=== PATIENT | female | born 1980 | race Caucasian/White ===

== ENCOUNTER → 2017-10-15 10:59 | Outpatient (CLI) | payer MEDICAID, SELFPAY ==
[2017-10-15 12:01] LABS: Absolute Neutrophil Count 6.5 X10^3/uL (2.0-7.7); Basophil# 0.05 X10^3/uL; Basophil% 0.6 % (0-1); Eosinophil# 0.31 X10^3/uL; Eosinophils% 3.5 % (0-5); Hematocrit 44.5 % (37-47); Hemoglobin 14.4 g/dl (12.0-15.0); Lymphocyte % 15.8 % (19-41); Mean Corp Hgb Conc 32.4 g/gl (32-36); Mean Corpuscular Hgb 31.1 pg (27.0-32.0); Mean Corpuscular Volume 96.1 fL (81-99); Mean Platelet Vol. 11.4 fl (6.2-12.0); Monocyte# 0.58 X10^3/uL; Monocyte% 6.5 % (0-10); Neutrophil # 6.52 X10^3/uL (2.7-7.7); Neutrophil % 73.4 % (47-70); Platelet Count 212 K/mm3 (150-450); RBC Distribution Width CV 13.9 % (11.6-14.6); RBC Distribution Width SD 47.3 fl (35.1-43.9); Red Blood Count 4.63 M/mm3 (4.2-5.4); White Blood Count 8.9 K/mm3 (4.4-11.0)
[2017-10-15 12:07] LABS: POSITIVE COUNT NO; POSITIVE DIFFERENTIAL NO; POSITIVE MORPHOLOGY NO
[2017-10-15 12:19] LABS: ALB/GLOB Ratio 1.2 RATIO (0.9-2.4); AST(SGOT) 14 U/L (15-37); Alanine Aminotransfer ALT/SGPT 26 U/L (13-56); Albumin, Serum 4.2 g/dL (3.2-5.0); Alkaline Phosphatase 61 U/L (45-117); Anion Gap 9 (5-15); BUN 10 mg/dL (7-18); BUN/Creat Ratio 10.8 RATIO (10-20); Calcium,Total 9.2 mg/dL (8.5-10.1); Chloride 104 mmol/L (98-107); Creatinine, Serum 0.92 mg/dL (0.55-1.02); EST Glomerular Filtration Rate 73 mL/min (>60); Est Glom Filt Rate - Afr Amer 88 mL/min (>60); Globulin 3.4 g/dL (2.2-4.2); Glucose 83 mg/dL (70-110); Potassium 4.2 mmol/L (3.5-5.1); Protein, Total 7.6 g/dL (6.4-8.2); Sodium Level 138 mmol/L (136-145); Vitamin D,25 Hydroxy 21.6 ng/mL (19.95-100.01)
== END ==
PROVIDERS: Visit Provider Family Medicine
DX: Z01.818 Encounter for other preprocedural examination (principal)
CPT/HCPCS: 36415; 80053; 82306; 85025

== ENCOUNTER 2017-10-17 12:43 | Day surgery (SDC) | payer MEDICAID, SELFPAY ==
[2017-10-17] VITALS (9 sets, daily range): BP systolic 109–125; BP diastolic 63–81; PULSE 56–85; RESP 12–16; TEMP 36.3–36.7; O2SAT 100; BMI 28.3
[2017-10-17 13:20] LABS: Internal QC Validated? YES +Cl - CLEAR BKGD; Pregnancy, Urine Negative Negative
--- NOTE | 2017-10-17 14:15 | RAD_ITS ---
STUDY: X-RAY - LEFT FOOT CLINICAL: Female, 37 years old. Documentation of fluoroscopic radiation use after open reduction internal fixation of the metatarsal fracture. TECHNIQUE: Four view(s) of the foot. COMPARISON: Postoperative radiographs of the left foot dated October 17, 2017. FINDINGS: Fluoroscopic radiation time is 98.9 seconds. Dose is 2.07 mGy. Please see operative report for additional details. RAD/Foot min 3 Views IMPRESSION: Documentation of fluoroscopic radiation during open reduction internal fixation of fifth metatarsal fracture. Electronically Signed: Lesley Schultz MD at 17:56 EST , Service support ,
[2017-10-17] MEDS: Cefazolin 2 GM in 0.9% Normal Saline 100 ML IV (14:53)
[2017-10-17] MEDS: Bupivacaine Mpf 0.5% 30 ML VIAL (15:05)
--- NOTE | 2017-10-17 17:12 | DCINST_ITS ---
Discharge Activity: May not drive while taking narcotic pain medications., Use Crutches Return to work on:: 10/27/17 - will reexamine in clinic next week for anticipated work return Ice area for (Minutes): 15 - apply to back of knee Weight Bearing Status: No weight bearing Keep extremity elevated above heart level: Left Leg Call your doctor if your incision/area has: Continuous Slow Oozing, Sudden Increased Bleeding, Increased Pain/ Swelling, Increased Redness, Foul Smelling Discharge, Swelling at the incision site Call your doctor if you observe: Fever of 101 or Higher, Numbness or Tingling, Calf discomfort, Uncontrolled pain Cleanse incision/area with: Keep Dressing Clean & Dry Allergies/Adverse Reactions: Allergies No Known Allergies Allergy (Verified 10/08/17 09:50) Medications to take at Discharge NK [NK] 10/08/17 Primary Care Physician: Care Physician,No Primary [Primary Care Provider] - Please Follow Up With: Eve Thompson DPM When: [facility]. Call if questions/concerns; [phone] Proposed Discharge Date: 10/17/17
--- NOTE | 2017-10-17 17:13 | OP.PN_ITS ---
Problem List (1) Fracture of fifth metatarsal bone of left foot Status: Acute Qualifiers: Encounter type: subsequent encounter Fracture type: closed Fracture alignment: displaced Fracture healing: with routine healing Qualified Code(s ): S92.352D - Displaced fracture of fifth metatarsal bone, left foot, subsequent encounter for fracture with routine healing (2) Left foot pain Status: Acute Immediate Post-Op Note Date of Procedure: 10/17/17 - Surgeon: Eve Thompson DPM. Litigation Coordinator: Bernardo Mcintyre PGY1 Primary Surgeon/Physician: Eve Thompson DPM shingle bolt cutter: none Pre-Operative Diagnosis: Displaced spiral oblique comminuted nonarticular fracture of the fifth metatarsal diaphysis, left foot Post-Operative Diagnosis: Displaced spiral oblique comminuted nonarticular fracture of the fifth metatarsal diaphysis, left foot Surgery/Procedure Performed:: Open reduction internal fixation left fifth metatarsal fracture Description of Surgical Findings:: Hemostasis controlled Fracture reduction and solid fixation Complications: None See detailed operative report for findings The patient tolerated the procedure and anesthesia well. She was transported to the PACU with vital signs stable and vascular status intact to the left lower extremity. All of her postoperative orders were entered electronically. She will be discharged home upon continued stability later today. Estimated Blood Loss: < 50 mL Specimen's removed: None Type of Anesthesia:: Local MAC - Preoperative: 10 cc of 1: 1 mixture of 1% lidocaine plain and 0.5% Marcaine plain administered in typical fifth ray block fashion to the left foot - Admit VTE Documentation VTE Present on Admission: No VTE Mechan Device Prophylaxis: SCD's
--- NOTE | 2017-10-17 17:23 | RAD_ITS ---
STUDY: X-RAY - LEFT FOOT CLINICAL: Female, 37 years old. Status post open reduction internal fixation of a fifth metatarsal fracture. TECHNIQUE: 3 view(s) of the foot. COMPARISON: Prior comparable comparison studies are not available for review at this time. FINDINGS: Normal talus, calcaneus, and tarsal bones. The joint spaces are within normal limits. Plate and screws are visible within the fifth metatarsal probably related to open reduction and internal fixation. Normal metatarsophalangeal joint of the great toe. Normal tibial and fibular sesamoid bones. Normal interphalangeal joint of the great toe. Normal phalanges of the great toe. Normal second through fifth metatarsophalangeal joints. Normal interphalangeal joints and phalanges of the lesser toes. A posterior splint is present. There is soft tissue swelling. RAD/Foot min 3 Views IMPRESSION: Documentation of open reduction internal fixation of the fifth metatarsal fracture. Electronically Signed: Lesley Schultz MD at 19:18 EST , Service support ,
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
== END 2017-10-17 18:15 | disposition home or self-care (01) ==
LOC: SDC 12:45 → ACINP 12:46 → AC 13:39
PROVIDERS: Anesthesiology; Visit Provider Podiatrist
PROC: (CPT 28485; principal; 2017-10-17 14:00)
DX: S92.352D Displaced fracture of fifth metatarsal bone, left foot, subsequent encounter for fracture with routine healing (principal); F17.210 Nicotine dependence, cigarettes, uncomplicated
CPT/HCPCS: 28485; 73630; 76000; 81025; J7120; J2405

== ENCOUNTER 2018-07-28 08:41 | Emergency (ER) | payer OTHER, MEDICAID, SELFPAY ==
[2018-07-28 08:43] VITALS: BP 137/56; PULSE 92; RESP 16; TEMP 36.8; O2SAT 100; BMI 27.8
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
[2018-07-28] MEDS: Diphth,Pertuss(Acell),Tet Vac 0.5 ML Vial IM (09:10)
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
[2018-07-28 11:29] VITALS: BP 114/52; PULSE 88; RESP 16; O2SAT 100
== END 2018-07-28 11:31 | disposition home or self-care (01) ==
PROVIDERS: Emergency Provider Emergency Medicine; Family Provider Family Medicine; PCP Family Medicine
DX: S09.90XA Unspecified injury of head, initial encounter (principal); S20.212A Contusion of left front wall of thorax, initial encounter; S63.501A Unspecified sprain of right wrist, initial encounter; V49.9XXA Car occupant (driver) (passenger) injured in unspecified traffic accident, initial encounter; Y93.9 Activity, unspecified; Y92.89 Other specified places as the place of occurrence of the external cause; Y99.9 Unspecified external cause status; Z72.0 Tobacco use; Z23 Encounter for immunization
CPT/HCPCS: 70450; 71046; 73110; 90471; 90715; 99283

== ENCOUNTER → 2020-07-20 17:07 | Outpatient (CLI) | payer BC, SELFPAY ==
[2020-07-20 17:07] VITALS: BMI 28.3
[2020-07-25 03:07] LABS: Chlamydia By Nucleic Acid AMP Negative (Negative)
[2020-07-25 06:28] LABS: Gonococcus By Nucleic Acid AMP Negative (Negative)
[2020-07-26 15:14] LABS: HPV Reflexed? NOT INDICATED
== END ==
PROVIDERS: PCP Family Medicine; Visit Provider Obstetrics & Gynecology
DX: Z12.4 Encounter for screening for malignant neoplasm of cervix (principal); Z11.3 Encounter for screening for infections with a predominantly sexual mode of transmission
CPT/HCPCS: 87491; 87591; 88175; G0145

== ENCOUNTER → 2023-02-14 | Outpatient (CLI) | payer OTHER, SELFPAY ==
--- NOTE | 2023-02-14 14:31 | US_ITS ---
STUDY: ULTRASOUND BREAST - RIGHT REASON FOR EXAM: Female, 43 years old. Palpable lump in the right breast. TECHNIQUE: Axial and longitudinal images of the RIGHT breast were performed with a high resolution ultrasound transducer. # OF IMAGES: 8 COMPARISON: Comparison is made with prior mammogram done earlier in the day. FINDINGS: RIGHT Breast: The palpable abnormality corresponds to a 2.5 cm x 2.5 cm x 1.2 cm irregular hypoechoic solid nodule at the 12:00 position of the breast at 3 cm from nipple. Increased vascularity. Biopsy recommended. US/Breast Limited Unilateral IMPRESSION: The palpable abnormality corresponds to a 2.5 cm x 2.5 cm x 1.2 cm complex irregular solid mass with increased vascularity. Biopsy recommended. ASSESSMENT CATEGORY: BIRADS Category 5: Highly Suggestive of Malignancy - Appropriate Action Should Be Taken. A letter regarding these results will be sent to the patient by the facility within 30 days. Electronically Signed: Hector Vasquez MD at 8:41 EDT ,
--- NOTE | 2023-02-14 14:31 | BI_ITS ---
MAMMOGRAPHY - BILATERAL SCREENING REASON FOR EXAM: Female, 43 years old. Routine annual screening examination. PERTINENT HISTORY: Two-week history of right breast lump. Bilateral breast implants. TECHNIQUE: Digital bilateral breast davion (3D mammographic acquisition) in the CC and MLO projections. 2-D mediolateral oblique (MLO) and craniocaudad (CC) views of both breasts were obtained. CAD: Full Field Digital Mammography with Computer Added Detection was performed. COMPARISON: None. Baseline examination. FINDINGS: Breast Composition: The breasts are heterogeneously dense, which may obscure small masses. The palpable lump corresponds to a 2.5 cm x 2.4 cm mass mass in the slightly upper central portion of the right breast. Correlation with ultrasound is recommended. No other significant abnormalities are identified. The breast prosthesis are unremarkable. BI/DIAG MAMM W/CAD, BILAT IMPRESSION: The palpable lump corresponds to a 2.5 cm x 2.4 cm mass in the slightly upper central portion of the right breast. Correlation with ultrasound is recommended ASSESSMENT CATEGORY: BIRADS Category 0: Incomplete. Need additional imaging evaluation. A letter regarding these results will be sent to the patient by the facility within 30 days. Approximately 10% of breast cancers are not detected by mammography. A normal mammogram should not delay biopsy of a clinically suspicious abnormality. [id number] Electronically Signed: Hector Vasquez MD at 9:09 EDT ,
== END | disposition home or self-care (01) ==
PROVIDERS: PCP Family Medicine; Referring Provider Obstetrics & Gynecology; Visit Provider Obstetrics & Gynecology
DX: N63.11 Unspecified lump in the right breast, upper outer quadrant (principal)
CPT/HCPCS: 76642; 77062; 77066; G0279

== ENCOUNTER 2023-04-24 10:56 | Day surgery (SDC) | payer OTHER, SELFPAY ==
[2023-04-24] VITALS (7 sets, daily range): BP systolic 107–115; BP diastolic 63–74; PULSE 60–74; RESP 16–18; TEMP 36.3–36.9; O2SAT 98–100; BMI 27.6
[2023-04-24] MEDS: Lactated Ringers 1,000 ML 15 ML IV (11:18)
[2023-04-24 11:19] LABS: Internal QC Validated? YES +Cl - CLEAR BKGD; Pregnancy, Urine Negative Negative
--- NOTE | 2023-04-24 11:35 | RAD_ITS ---
INDICATION: ORIF FX EXAMINATION/TECHNIQUE: X-RAY - RIGHT XR Ankle Min 3 Views 5 VIEWS COMPARISON: None. FINDINGS: 5 intraoperative fluoroscopic spot films obtained during ORIF right ankle fractures. Plate and screw fixator over the distal fibula with compression screws in the medial malleolus. RAD/Ankle min 3 Views IMPRESSION: Status post ORIF right ankle fractures. Electronically Signed: Saurav Martinez MD at 0:40 EDT ,
[2023-04-24] MEDS: Cefazolin 1 GM/50 ML BAG IV (11:44)
[2023-04-24] MEDS: Bupivacaine 0.25% 30 ML Vial (12:58)
--- NOTE | 2023-04-24 13:23 | DCINST_ITS ---
Discharge Instructions Follow Up Care Test Results: Test results from this visit will be discussed in further detail at your follow- up appointment, if applicable. Discharge Plan Admission Primary Reason for Your Visit: R ankle ORIF Attending Provider: Mc Cartagena Primary Care Provider: Sandy Peralta Instructions Additional Instructions / Restrictions: Follow preprinted instructions from your surgeons office Discharge Orders/Prescriptions Prescriptions: No Action oxycodone-acetaminophen 5-325 mg tablet 1 tab PO Q6H PRN (Reason: pain) Patient Comments: TAKE 1 TABLET BY MOUTH EVERY 6 HOURS NEEDED FOR PAIN for up to 3 (THREE) days. albuterol 90 mcg/actuation aerosol 90 mcg inhalation PRN Referrals / Follow Up: Sandy Peralta MD [Primary Care Provider] - Mc Cartagena DO [Med Staff - Active Staff] - Disposition Disposition (needs filled in before D/C Order can be placed): Home, Self Care
--- NOTE | 2023-04-24 13:24 | PCM.OPRPT ---
Report of Operation Date of Procedure: 04/24/23 Description of Surgical Findings:: Preoperative diagnosis: Right ankle bimalleolar ankle fracture Postoperative diagnosis: Right ankle bimalleolar ankle fracture Procedure: 1. Open reduction internal fixation right ankle bimalleolar fracture 2. Stress examination under anesthesia right ankle Surgeon: Mc Cartagena DO Fleet Assistant: Hanna Velez PA-C Anesthesia: General endotracheal Anesthesiologist: Dr. Love Complications: None apparent Drains: None Estimated blood loss: 30 cc Urinary output: None recorded IV fluids: 1800 cc crystalloid Specimens: None Surgical implants: Arthrex 4.0 partially-threaded cannulated screws x 2, 7 hole third tubular plate and screws Surgical indications: This is a 43-year-old female who sustained a fall down while she was [place] for [employer] [place]. She was seen at an outside emergency department and splinted. She followed up in our office. Injury happened on 04/18/2023. X-rays revealed a bimalleolar ankle fracture. Skin wrinkling was present and surgery was scheduled due to the unstable nature of the ankle. I recommend surgical invention in the form of right ankle bimalleolar ankle fracture open reduction internal fixation with possible syndesmotic fixation. I reviewed the risks, benefits, terms the procedure with the patient. The risks include but are not limited to bleeding, infection, loss of life or limb, risk of anesthesia, risk of nerve block, persistent pain, nonunion, malunion, posttraumatic arthritis, instability, need for additional surgery, failure of orthopedic hardware, persistent limp or need for assistive device. Patient expressed understanding of these risks and wished to proceed. Description of procedure: Patient was seen in preoperative holding area. They were identified by name, medical record number, date of . The operative extremity was marked with a surgical marker. We confirmed informed consent with the patient and all questions were answered to her satisfaction. At time of the procedure, patient was brought to the operative suite and positioned supine on a standard operating table. All bony prominences were well-padded. General anesthesia was administered. After adequate anesthesia, a well-padded pneumatic tourniquet was applied to the right upper thigh. A large bump was placed in the patient's right hip. The right lower extremity was elevated on bath blankets for fluoroscopic imaging and access to the limb during surgery. We secured this with tape as well as the nonoperative extremity. We then performed a timeout with all parties in attendance and agree with the side, site, operation to be performed. No concerns were voiced and elected to proceed. 1 g Ancef was administered prior to incision by the anesthesia staff. We then prepped and draped the operative extremity using a ChloraPrep. While stabilizing the ankle, the operative extremity was exsanguinated with an Esmarch bandage. Tourniquet was inflated to 280 mmHg which remained up for approximately 40 minutes. I first turned my attention to the medial malleolus. A longitudinal incision was made sharply centered over the medial malleolus fracture which was easily palpable through the skin. I bluntly dissected the subcutaneous field. Crossing veins were cauterized. Fracture was encountered. Periosteum was interposed in the fracture site and debrided sharply. The talus was examined and its articular surface was pristine. Posterior tibialis tendon was examined and pristine. I then placed a pointed reduction clamp around the tip of the medial malleolus achieving anatomic reduction. 2 parallel K wires were placed through the medial malleoli or tip perpendicular to the fracture site. These were drilled unicortically after position was confirmed on orthogonal fluoroscopy. Partially-threaded cancellous screws were placed with excellent purchase. Wires and reduction clamp were removed with excellent compression across fracture site. Orthogonal Fluoroscopy confirmed appropriate placement of hardware and anatomic reduction of the medial malleolus. I then turned my attention to the lateral malleolus. Incision was planned over the lateral malleolus and distal fibular shaft centered over the level of the fracture. Skin was sharply incised with a 15 blade scalpel. Superficial bleeders were cauterized with Bovie cautery. We then bluntly dissected to the level of the fascia. Fascia was opened with Bovie cautery. We examined closely for the superficial peroneal nerve which was not encountered throughout surgery. We bluntly dissected down to the level of the periosteum. Hohmann retractors were placed after fracture was encountered as well as the fibula. Periosteum was elevated at the level of the fracture approximately 2 to 3 mm. There were 2 separate fracture lines including an avulsion of the AITFL anteriorly. A [id number] reduction tenaculum was used to reapproximate the fracture site with excellent anatomic reduction. We then prepared for a lag screw for fixation. We first planned our lag screw perpendicular to the fracture site posterior inferior to anterior superior. We overdrilled the near cortex with a 3.0 mm drill bit. We then withdrew the drill bit and drilled the far cortex with a 2.0 mm drill bit. We then measured and placed an appropriately sized lag by technique 3.0 mm cortical screw with excellent compression across the fracture site. Reduction tenaculum was removed with excellent security at the fracture site. An additional lag screw was placed in similar fashion distal to the first lag screw. We then selected our plate on the back table. A 7 hole third tubular plate was selected and applied to the lateral cortex of the distal fibula. This was held in place provisionally with a BB tack. I compressed the plate to bone with a cortical screw proximal and cancellous screw distally. BB tack was removed. Appropriate placement of the plate was confirmed on fluoroscopy. 2 additional bicortical cortex screws were placed in the proximal portion of the plate. An additional cancellous screw was placed distally. Fracture was stable at this point. C arm was brought in in a external rotation stress test as well as a cotton test were performed and demonstrated syndesmotic stability. Final fluoroscopic images were obtained and saved. Wounds were copiously irrigated with normal saline solution. Tourniquet deflated and hemostasis was excellent. We reapproximated the dermis in interrupted buried fashion with 2-0 Vicryl suture. Skin was finally reapproximated with interrupted simple 3-0 nylon suture. A sterile compression dressing was then applied. A well-padded 3 sided AO type fiberglass short leg splint was applied in maximal dorsiflexion. Patient tolerated procedure well without apparent complication. She was safely awoken the operative suite, extubated and transferred to her gurney and subsequently to PACU in stable condition. Need for skilled assistant men's lacrosse coach: Hanna Velez PA-C was critical to the outcome of the case. During the course of the procedure the physician assistant men's lacrosse coach played a vital role. Her intimate knowledge of my steps in the procedure aided in safe and expedient completion of the procedure. The PA played a vital role in positioning particularly in obtaining the appropriate positioning. The PA was also vital in the retraction of soft tissues during the exposure and protecting vital structures. The PA was also vital and obtaining fracture reduction and assisting with hardware placement. She also played a vital role in closure and splint application with my direct supervision. Post Operative Plan: Weightbearing: Nonweightbearing operative extremity, anticipate 6 weeks nonweightbearing. Plan to transition to pneumatic foam walking boot 2 weeks postoperatively. Antibiotics: 2 g Ancef x 1 dose preoperatively DVT Prophylaxis: 81 mg aspirin twice daily starting postoperative day number 1 x 6 weeks Mckeon: None Dressing: Maintain splint, keep it clean dry and intact until follow-up X-Rays: 2 weeks postop in the office in splint Pain Medication: Percocet Rx upon discharge, Tylenol and ibuprofen encouraged Follow-up: 2 weeks post-operatively with me in the office
[2023-04-24] MEDS: Oxycodone/Apap 5/325 Tablet PO (14:39)
== END 2023-04-24 15:07 | disposition home or self-care (01) ==
LOC: SDC 10:58 → AC 10:59
PROVIDERS: Anesthesiology; PCP Family Medicine; Referring Provider Student in an Organized Health Care Education/Training Program; Visit Provider Student in an Organized Health Care Education/Training Program
PROC: (CPT 27814; principal; 2023-04-24 12:15)
DX: S82.841A Displaced bimalleolar fracture of right lower leg, initial encounter for closed fracture (principal); M25.571 Pain in right ankle and joints of right foot; E66.3 Overweight; Z68.27 Body mass index [BMI] 27.0-27.9, adult; W18.31XA Fall on same level due to stepping on an object, initial encounter; Y92.89 Other specified places as the place of occurrence of the external cause
CPT/HCPCS: 27814; 01462; 73610; 76000; 81025; C1713; J7120; J2405

== ENCOUNTER 2023-07-15 15:00 | Outpatient (RCR) | payer OTHER, SELFPAY ==
--- NOTE | 2023-06-13 11:51 | HP.PTEVAL_ITS ---
Patient's Visit Information Visit Information Visit Information: KATHRIN MENCHACA is a 43 year old F referred to Physical Therapy by Dr. Mc Cartagena DO with a diagnosis of ORIF of the Right Ankle. Date of Evaluation: 06/13/23 Physical Therapist: Brittany Hurst DPT Visit Plan Frequency: 2x /Week Duration: 4 Weeks Plan: Focus on ankle ROM and proprioception- functional mobility and gait HEP Given IE: Ankle ROM, SLS, Gastroc Stretch with Towel Subjective Subjective: Patient broke both sides of her ankle [place] craw[place] in [place] a couple of months ago Dr. Cartagena did surgery 04/1023 ORIF. She went home straight after-she has been in a splint and CAM walker since then. Her current restrictions are to maintain being in the boot and is WBAT. She is still using a knee scooter/crutches for long distance. Around her home she is walking. Around the house she is hit or miss with the CAM walker. She is barefoot in the house is unsure if she can put a shoe on due to swelling. Worst: 6/10 Agg: pressure on the foot. The pain is along the medial side but does have some on the lateral side too depends on the angle of the foot- she feels that she doesn't always put it flat. Describes the pain as dull and achy and sharp and shooting. Eases: ice, tries to avoid pain medication- she had only had to take it 1-2x since she has been WBAT- she Tylenol PRN Best: 0/10. No radiating pain. No N/T in the toes. Prior to injury she was active but she did not have a gym program. 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 Prior to injury she was working in tennis shoes. Goes back to [place] in 2 weeks. She had x-rays at the 4 week [facility]ary and everything looked good. Sleep: not disturbed. PMHx/ Meds: no changes since surgery. Objective Objective: Posture: FH, RS- can correct but does not maintain Gait: knee scooter for distance from lobby- CAM walker on right LE- poor heel/toe pattern and decreased WB on right LE SLS: weight shift but unable to SLS HR/TR: able in sitting Girth: Figure 8: 54 cm, Mall: 27 cm, Mets: 24 cm ROM: DF: 5 degrees from neutral PF: 40 degrees, Inver: 30 degrees Ever: 20 degrees Strength: Core: fair, Hip: 4/5, Knee: 4+/5, Ankle: 4/5 through available range Observation: incisions healing well no s/s of infection Palpation: tender along medial and lateral joint line and 3rd metatarsal- no tenderness along incisions Balance/Special Test Scores Lower Extremity Functional Score: 43 Goals Goal 1:: Patient will be I with HEP and progression Goal Time Frame: 4-6 Weeks Goal 2:: Patient will ambulate >300 feet with a normalized gait pattern Goal Time Frame: 4-6 Weeks Goal 3:: Patient will SLS for 30 sec without LOB Goal Time Frame: 4-6 Weeks Goal 4:: Patient will report 80% improvement Goal Time Frame: 4-6 Weeks Rehabilitation Potential Physical Therapy Diagnosis: Patient presents s/p Right Ankle ORIF- she has decreased LE ROM, proprioception, flex, strength/stabilization and muscular endurance leading to abnormal gait and increased pain with ADL's Anticipated Interventions Patient/Client Instruction: Educate patient on: Benefits of Fitness Program Therapeutic Exercise to Include: Strength training, Endurance training, Balance training, Coordination, Agility training, Body mechanics, Postural training, Flexibilty training, Gait and locomotor training, Neuromotor development, Passive ROM, Active ROM, Dynamic Lumbar Stabilization and Scapular Strength/Stabilization For the Purpose of:: To improve muscle performance and motor function and To improve ability to perform ADL's TENS: Yes Cryotherapy (ice pack, ice massage): Yes Thermo therapy (hot pack): Yes Ultrasound (thermal/non thermal): No Vasopneumatic device: Yes Text: Thank you for the opportunity to evaluate your patient. For Medicare and Medicare HMO plans, please review the plan of care and approve it. It will need to be FAXED BACK to us at [phone] for Medicare purposes. For Medicare only, by signing this I certify the plan of care. Please let me know if there are questions or concerns regarding this plan of care. Physician Signature: Date:
--- NOTE | 2023-09-11 08:18 | HP.PT.NRP ---
Patient Information Patient Information: KATHRIN MENCHACA was seen in my office for initial evaluation on 06/13/23. The following Plan of Care was established for this patient: POC Established Initial Frequency: 2x /Week Initial Duration: 4 Weeks Anticipated Interventions Patient/Client Instruction: Educate patient on: Benefits of Fitness Program Therapeutic Exercise to Include: Strength training, Endurance training, Balance training, Coordination, Agility training, Body mechanics, Postural training, Flexibilty training, Gait and locomotor training, Neuromotor development, Passive ROM, Active ROM, Dynamic Lumbar Stabilization and Scapular Strength/Stabilization For the Purpose of:: To improve muscle performance and motor function and To improve ability to perform ADL's TENS: Yes Cryotherapy (ice pack, ice massage): Yes Thermo therapy (hot pack): Yes Ultrasound (thermal/non thermal): No Vasopneumatic device: Yes Last Seen Last Seen: This patient was last seen in our office . Pertinent comments regarding their Physical therapy will appear below: Patient has not attended PT in over 6 weeks, she is appropriate to continue her home exercise program and is encouraged to call if she has questions or concerns. Discharge at this time. At this point I will be discontinuing this patient from physical therapy. I would be happy to see this patient again in the future if found appropriate by the physician. Thank you! Brittany Hurst, JACQUELINET Balance/Gait/Functional tests Balance/Special Test Scores Lower Extremity Functional Score: 43
== END 2023-07-15 19:00 | disposition home or self-care (01) ==
LOC: PT 15:00
PROVIDERS: PCP Family Medicine; Visit Provider Student in an Organized Health Care Education/Training Program
DX: S82.841D Displaced bimalleolar fracture of right lower leg, subsequent encounter for closed fracture with routine healing (principal)
CPT/HCPCS: 97110; 97162